=== PATIENT | male | born 1960 | race Caucasian/White ===

== ENCOUNTER 2018-11-12 17:41 | Emergency (ER) | payer OTHER ==
[~2018-11-12] VITALS: Ht 182.9 cm; Wt 108.9 kg
[~2018-11-12 17:41] MED LIST: ALBU90OI INH; AZIT250 PO; CODGUAEL PO; HYDACE5 PO; HYDMOR4 PO; IBUP800 PO; INSULIN; METF500 PO; PIOG30 PO; RXHYDMOR2 PO
[2018-11-12 18:31] LABS: BASOPHILS ABSOLUTE AUTO 0.06 K/mm3 (0.00-0.23); BASOPHILS PERCENT AUTO 1 % (0-2); EOSINOPHILS ABSOLUTE AUTO 0.25 K/mm3 (0.00-0.68); EOSINOPHILS PERCENT AUTO 3 % (0-6); Hematocrit 43.5 % (37.0-53.0); Hemoglobin 14.8 g/dL (13.5-17.5); IMMATURE GRAN ABSOLUTE AUTO 0.04 K/mm3 (0.00-0.10); IMMATURE GRAN PERCENT AUTO 1 % (0-1); LYMPHOCYTES ABSOLUTE AUTO 3.12 K/mm3 (0.84-5.20); LYMPHOCYTES PERCENT AUTO 39 % (21-46); MONOCYTES ABSOLUTE AUTO 0.55 K/mm3 (0.16-1.47); MONOCYTES PERCENT AUTO 7 % (4-13); Mean Corpuscular HGB 28.7 pg (26.0-34.0); Mean Corpuscular Volume 85 fL (80-100); Mean Platelet Volume 10.5 fL (9.1-12.4); NEUTROPHILS ABSOLUTE AUTO 3.91 K/mm3 (1.96-9.15); NEUTROPHILS PERCENT AUTO 49 % (41-73); Platelet Count 246 K/mm3 (150-400); RDW Coefficient Variation 12.2 % (11.7-14.2); RDW Standard Deviation 37.1 fL (35.1-46.3); Red Blood Cell Count 5.15 M/mm3 (4.30-5.90); White Blood Cell Count 7.93 K/mm3 (4.00-11.30)
[2018-11-12 18:44] LABS: Anion Gap 3 mmol/L (6-16); Blood Urea Nitrogen 15 mg/dL (8-24); Bun/Creatinine Ratio 14.7 (12.0-20.0); CO2, Blood 28 mmol/L (21-32); Calcium, Blood 8.8 mg/dL (8.5-10.1); Chloride, Blood 103 mmol/L (98-108); Creatinine, Blood 1.02 mg/dL (0.60-1.20); Glomerular Filtration Rate >60 (60-); Glucose, Blood 196 mg/dL (70-99); Potassium, Blood 4.3 mmol/L (3.5-5.5); Sodium, Blood 134 mmol/L (136-145)
[2018-11-12 19:48] LABS: International Normalized Ratio 1.03; Prothrombin Time Results 10.9 Sec (9.7-11.5)
[2018-11-12] MEDS ORDERED: XARELTO15 MG PO (19:54)
== END 2018-11-12 20:19 | disposition home or self-care (01) ==
LOC: ER 17:41
PROVIDERS: Emergency Medicine
DX: I82.402 Acute embolism and thrombosis of unspecified deep veins of left lower extremity (principal); E11.9 Type 2 diabetes mellitus without complications; Z79.899 Other long term (current) drug therapy; Z87.891 Personal history of nicotine dependence
CPT/HCPCS: 36415; 80048; 85025; 85379; 85610; 85730; 93971; 99284-25

== ENCOUNTER 2018-11-15 23:17 | Inpatient (IN) | payer OTHER ==
[~2018-11-15] VITALS: Ht 182.9 cm; Wt 111.2 kg
[~2018-11-15 23:17] MED LIST changes: +XARELTO15 MG PO
[2018-11-16 00:09] LABS: BASOPHILS ABSOLUTE AUTO 0.06 K/mm3 (0.00-0.23); BASOPHILS PERCENT AUTO 1 % (0-2); EOSINOPHILS ABSOLUTE AUTO 0.26 K/mm3 (0.00-0.68); EOSINOPHILS PERCENT AUTO 4 % (0-6); Hematocrit 46.5 % (37.0-53.0); Hemoglobin 15.5 g/dL (13.5-17.5); IMMATURE GRAN ABSOLUTE AUTO 0.04 K/mm3 (0.00-0.10); IMMATURE GRAN PERCENT AUTO 1 % (0-1); LYMPHOCYTES ABSOLUTE AUTO 3.51 K/mm3 (0.84-5.20); LYMPHOCYTES PERCENT AUTO 48 % (21-46); MONOCYTES ABSOLUTE AUTO 0.45 K/mm3 (0.16-1.47); MONOCYTES PERCENT AUTO 6 % (4-13); Mean Corpuscular HGB 27.9 pg (26.0-34.0); Mean Corpuscular HGB Conc 33.3 g/dL (31.5-36.5); Mean Corpuscular Volume 84 fL (80-100); Mean Platelet Volume 10.8 fL (9.1-12.4); NEUTROPHILS ABSOLUTE AUTO 3.04 K/mm3 (1.96-9.15); NEUTROPHILS PERCENT AUTO 41 % (41-73); Platelet Count 248 K/mm3 (150-400); RDW Coefficient Variation 12.3 % (11.7-14.2); RDW Standard Deviation 37.5 fL (35.1-46.3); Red Blood Cell Count 5.55 M/mm3 (4.30-5.90); White Blood Cell Count 7.36 K/mm3 (4.00-11.30)
[2018-11-16 00:18] LABS: International Normalized Ratio 1.1; Prothrombin Time Results 11.6 Sec (9.7-11.5)
[2018-11-16 00:23] LABS: Alanine Aminotransfer (ALT/SGP 23 U/L (12-78); Albumin, Blood 3.8 g/dL (3.4-5.0); Alk Phos 148 U/L (50-136); Anion Gap 7 mmol/L (6-16); Aspartate Aminotrans (AST/SGOT 13 U/L (12-37); Bilirubin, Total 0.4 mg/dL (0.1-1.0); Blood Urea Nitrogen 15 mg/dL (8-24); Bun/Creatinine Ratio 17.1 (12.0-20.0); CO2, Blood 27 mmol/L (21-32); Calcium, Blood 8.5 mg/dL (8.5-10.1); Chloride, Blood 102 mmol/L (98-108); Creatinine, Blood 0.88 mg/dL (0.60-1.20); Globulin, Blood 3.7 g/dL (2.2-4.0); Glomerular Filtration Rate >60 (60-); Glucose, Blood 403 mg/dL (70-99); Potassium, Blood 4.2 mmol/L (3.5-5.5); Sodium, Blood 136 mmol/L (136-145); Total Protein, Blood 7.5 g/dL (6.4-8.2)
[2018-11-16] MEDS ORDERED: INSUGL100V SC (04:25)
[2018-11-16] MEDS ORDERED: METF500 PO (04:29)
[2018-11-16] MEDS ORDERED: GLIP5 PO (04:36)
[2018-11-16] MEDS ORDERED: METO50 PO (04:37)
[2018-11-16] MEDS ORDERED: FENO145 PO (04:39)
[2018-11-16] MEDS ORDERED: Prinivil10 MG PO (04:40)
[2018-11-16] MEDS ORDERED: Zocor20 MG PO (04:42)
--- NOTE | 2018-11-16 07:27 | NUR ---
NOC SHIFT SUMMARY PT ADMITTED THIS NIGHT FOR PE. HAD RECENTLY BEEN DIAGNOSED WITH DVT AND WAS ON XARELTO. SUDDENLY STARTED "NOT FEELING RIGHT" AND CAME INTO ED LAST NIGHT. HAS DENIED ANY PAIN OR DISCOMFORT SINCE BEING ADMITTED TO THE FLOOR. VSS. AAOX4. RESP EVEN AND UNLABORED. APPEARS IN NO ACUTE DISTRESS. REPORT TO ONCOMING RN.
--- NOTE | 2018-11-16 10:49 | NUR ---
Upon receiving a referral for spiritual care, I entered patient's room. Patient explained about his current medical condition and about his fears about the clots breaking loose and causing more damage. Patient also admitted his concerns about an upcoming procedure that will deal with the clots in his leg. Patient asked if I would pray for him. I gladly provided prayer for patient's protection, for peace and God's hand to guide the doctor's hands. Patient then told me about his life, career and spiritual journey (which includes Hindu, Synagogue and Restorationism influences). Patient does not attend a quaker but meets with God in the [place]. I conducted a life review, explored patient's belief system, provided pastoral senior genetic counselor and prayer. Patient responded well and showed signs of reduced stress and fear. I will continue to remain available to patient and family.
--- NOTE | 2018-11-16 11:16 | NUR ---
HEPARIN HEPARIN BOLUS ADMINISTERED AND HEPARIN DRIP INFUSING. ERNIE, RN VERIFIED WITH THIS RN. PT EDUCATED WHAT MEDICATION WAS USED FOR. PLANS FOR PROCEDURE LATE THIS AM OR AFTERNOON BY DR. RAMOS. CALL LIGHT IN REACH.
--- NOTE | 2018-11-16 16:15 | NUR ---
ARRIVED FROM [facility], TO ICU 5, VIA BED; HAD BEEN ON MEDICAL FLOOR, ROOM 306, PRIOR TO PROCEDURE. PATIENT ON TPA INFUSION INTO L PEDAL SHEATH (VENOUS); INFUSING AT 1MG/HR OR 25CC/HR. ALSO, HEPARIN DRIP INFUSING AT 300U/HR (6ML/HR OR 3.3U/KG/HR). PATIENT A/O AND DENIES DISCOMFORT. GOOD PULSES TO ALL EXTREMITIES. BIOX. 100% ON ROOM AIR. PATIENT C/O BEING HUNGARY; GIVEN ICE WATER FOR NOW AND WILL GIVE DINNER AT ABOUT 1700. R GROIN SITE (VENOUS) SOFT; DRESSING D/I. L PEDAL SITE INFUSING WITH TPA NOTED ABOVE; SITE AND DRESSING D/I. PATIENT ORIENTED TO CALL LIGHT AND SAFETY PROTOCOLS. WANTING TO WATCH TV; RN ASSISTED.
--- NOTE | 2018-11-16 18:00 | NUR ---
SUMMARY: R GROIN (VENOUS) SITE SOFT/DRESSING INTACT. L FOOT SHEATH/DRESSING D/I; INFUSING WITH TPA AT 25ML/HR. HEPARIN DRIP INFUSING AT 300U/HR; 6ML/HR. TOLERATED 100% OF DINNER AND WANTED SNACKS WELL. VOIDED IN URINAL. L FOOT SL. COOLER THAN R FOOT AND CALF MORE SWOLLEN BUT GOOD PULSES AND COLOR BILAT. WILL REPORT TO ONCOMING RN.
--- NOTE | 2018-11-16 19:30 | NUR ---
ASSUMED CARE PT SUPINE IN BED, A&OX4 S/P IVC FILTER PLACEMENT TODAY WITH DR RAMOS. PT HAS SET HEPARIN INFUSING AT 300 UNITS/HR=6ML/HR AND tPA TO LEFT FOOT SHEATH AT 1MG/HR. PLAN TO TO TAKE PT BACK TO [employer] TOMORROW FOR RE-EVAL OF LLE DVT. PT REPORTING LEFT FOOT PAIN, "LIKE THEY HIT A NERVE." FOOT IS WARM WITH GOOD PULSES AND PLETH ON SPO2. PT'S SISTER IN ROOM. VSS, ECG SHOWS SR AND O2 SATS >95% ON RA.
--- NOTE | 2018-11-17 06:22 | NUR ---
SHIFT SUMMARY NO ACUTE EVENTS OVERNIGHT. HEPARIN REMAINS AT 3.3UNITS/KG/HR TO EQUAL 300UNITS/HR AND tPA VIA LEFT FOOT VENOUS SHEATH AT 1MG/HR. LLE HAS 2+ PULSES, IS PINK AND WARM. PT HAS REPORTED PAIN TO HEEL OF FOOT AND CALF OVERNIGHT BUT PAIN TOLERABLE W/ TYLENOL AND REPOSITIONING. NO BM, VOIDS INTO URINAL. VSS, ECG SHOWS SR AND O2 SATS MID 90'S BUT WILL DROP TO 88% FOR SHORT PERIODS OF TIME WITH SLEEP.
--- NOTE | 2018-11-17 07:15 | NUR ---
ASSUMED CARE OF PATIENT; SEE ASSESSMENT CHARTING FOR DETAILS. PATIENT SLEEPY; ROUSES TO VERBAL STIMULI. DENIES ACUTE PAIN TO L FOOT BUT SOME SORENESS TO BACK OF L CALF STARTED UP. GOOD PEDAL PULSES AND COLOR; SHEATH INTACT AND INFUSING WITH TPA AT 25ML/HR. LUNGS CLEAR; BIOX HIGH 90'S ON ROOM AIR. MONITOR REMAINS NSR WITH RARE TO OCCASIONAL ECTOPIC.
--- NOTE | 2018-11-17 09:09 | NUR ---
TO [facility]ENTER VIA BED; ON [employer]; ICU TRIPLE PUMP WITH PATIENT AND HEPARIN AND TPA INFUSIONS CONTINUE.
--- NOTE | 2018-11-17 09:50 | NUR ---
RETURNED FROM [facility]ART CENTER; SHEATH TO L FOOT REMOVED; SITE INTACT WITH CLEAR DRESSING. PATIENT WITH ORDERS TO D/C HOME TODAY.
--- NOTE | 2018-11-17 10:30 | NUR ---
DR. WHITT, HERE; REVIEWED D/C MEDS. ETC. WANTS PATIENT TO FOLLOW-UP WITH DR. RAMOS WITHIN 2 WEEKS AND TO ALSO PURSUE FINDING A PCP
--- NOTE | 2018-11-17 11:00 | NUR ---
DISCHARGE INSTRUCTIONS GIVEN; NOTE: PATIENT IS ILLITERATE BUT ABLE TO SIGN NAME. STATES HIS MOTHER HELPS MANAGE HIS MEDICATIONS AND SHE EXPLAINS EVERYTHING TO HIM. RN VERBALLY GAVE PATIENT HIS INSTRUCTIONS AND REVIEWED MEDICATIONS (TO CONTINUE CURRENT MEDS.). EDUCATIONAL INSTRUCTIONS ON DVT, DM, IVC FILTER, ETC. (HANDOUTS) GIVEN TO PATIENT; HE WILL HAVE HIS MOTHER AND SISTERS REVIEW INFORMATION WITH HIM.
--- NOTE | 2018-11-17 11:10 | NUR ---
IV DC'D FROM R [facility] AND SECURED WITH DRESSING. PATIENT OOB AND CHANGING INTO STREET CLOTHES.
--- NOTE | 2018-11-17 11:40 | NUR ---
DISCHARGED HOME; TO PRIVATE CAR VIA W/C. SISTER AND NEPHEW HERE WITH PATIENT AND WILL TAKE HIM HOME. RN REVIEWED D/C INSTRUCTIONS WITH PATIENTS' SISTER AND SHE WILL REVIEW THEM WITH HER MOTHER AND OTHER SISTER, ALSO.
== END 2018-11-17 11:50 | disposition home or self-care (01) | DRG 167 ==
LOC: ER 23:17 → MEDS 23:18 → ICUE 11-16 15:38
PROVIDERS: Emergency Medicine; Internal Medicine; ADMIT Internal Medicine
PROC: 06H03DZ Insertion of Intraluminal Device into Inferior Vena Cava, Percutaneous Approach (ICD-10-PCS; principal; 2018-11-17)
PROC: 3E03317 Introduction of Other Thrombolytic into Peripheral Vein, Percutaneous Approach (ICD-10-PCS; 2018-11-17)
DX: I26.99 Other pulmonary embolism without acute cor pulmonale (principal); I82.5Z2 Chronic embolism and thrombosis of unspecified deep veins of left distal lower extremity; Z87.891 Personal history of nicotine dependence; E11.9 Type 2 diabetes mellitus without complications; Z79.84 Long term (current) use of oral hypoglycemic drugs; Z79.01 Long term (current) use of anticoagulants
CPT/HCPCS: 36415; 37191; 37212; 37214; 71260; 75820; 76937; 80053; 82947; 83036; 83880; 84484; 85025; 85384; 85610; 85730; 93005; 93010; 93306; 99152; 99153; 99285-25; A9270; C1769; C1880; C1894; G0378; J1644; J1815; J2250; J2997; J3010; J7030; J7040; Q9967

== ENCOUNTER 2018-11-20 11:16 | Emergency (ER) | payer OTHER ==
[~2018-11-20] VITALS: Ht 182.9 cm; Wt 100.2 kg
[~2018-11-20 11:16] MED LIST changes: +FENO145 PO; +GLIP5 PO; +INSUGL100V SC; +METO50 PO; +Prinivil10 MG PO; +Zocor20 MG PO
[2018-11-20 12:07] LABS: BASOPHILS ABSOLUTE AUTO 0.06 K/mm3 (0.00-0.23); BASOPHILS PERCENT AUTO 1 % (0-2); EOSINOPHILS PERCENT AUTO 3 % (0-6); Hematocrit 43.8 % (37.0-53.0); Hemoglobin 14.8 g/dL (13.5-17.5); IMMATURE GRAN ABSOLUTE AUTO 0.04 K/mm3 (0.00-0.10); IMMATURE GRAN PERCENT AUTO 1 % (0-1); LYMPHOCYTES ABSOLUTE AUTO 2.41 K/mm3 (0.84-5.20); LYMPHOCYTES PERCENT AUTO 35 % (21-46); MONOCYTES ABSOLUTE AUTO 0.48 K/mm3 (0.16-1.47); MONOCYTES PERCENT AUTO 7 % (4-13); Mean Corpuscular HGB 27.8 pg (26.0-34.0); Mean Corpuscular HGB Conc 33.8 g/dL (31.5-36.5); Mean Corpuscular Volume 82 fL (80-100); Mean Platelet Volume 11.2 fL (9.1-12.4); NEUTROPHILS ABSOLUTE AUTO 3.66 K/mm3 (1.96-9.15); NEUTROPHILS PERCENT AUTO 53 % (41-73); Platelet Count 219 K/mm3 (150-400); RDW Coefficient Variation 12.4 % (11.7-14.2); RDW Standard Deviation 36.9 fL (35.1-46.3); Red Blood Cell Count 5.33 M/mm3 (4.30-5.90); White Blood Cell Count 6.85 K/mm3 (4.00-11.30)
[2018-11-20 12:19] LABS: Alanine Aminotransfer (ALT/SGP 29 U/L (12-78); Albumin, Blood 3.8 g/dL (3.4-5.0); Alk Phos 137 U/L (50-136); Anion Gap 6 mmol/L (6-16); Aspartate Aminotrans (AST/SGOT 5 U/L (12-37); Bilirubin, Total 0.5 mg/dL (0.1-1.0); Blood Urea Nitrogen 18 mg/dL (8-24); Bun/Creatinine Ratio 19.6 (12.0-20.0); CO2, Blood 27 mmol/L (21-32); Calcium, Blood 8.6 mg/dL (8.5-10.1); Chloride, Blood 102 mmol/L (98-108); Creatinine, Blood 0.92 mg/dL (0.60-1.20); Globulin, Blood 3.8 g/dL (2.2-4.0); Glomerular Filtration Rate >60 (60-); Glucose, Blood 363 mg/dL (70-99); Potassium, Blood 4.2 mmol/L (3.5-5.5); Sodium, Blood 135 mmol/L (136-145); Total Protein, Blood 7.6 g/dL (6.4-8.2); Troponin I <0.015 ng/mL (0.000-0.040)
== END 2018-11-20 12:52 | disposition home or self-care (01) ==
LOC: ER 11:16
PROVIDERS: Internal Medicine
DX: S46.812A Strain of other muscles, fascia and tendons at shoulder and upper arm level, left arm, initial encounter (principal); E11.9 Type 2 diabetes mellitus without complications; Z79.899 Other long term (current) drug therapy; Z79.4 Long term (current) use of insulin; Z86.718 Personal history of other venous thrombosis and embolism; Z79.01 Long term (current) use of anticoagulants; X58.XXXA Exposure to other specified factors, initial encounter
CPT/HCPCS: 36415; 71046; 80053; 84484; 85025; 93005; 93010; 99284-25

== ENCOUNTER 2019-02-08 07:11 | Day surgery (SDC) | payer OTHER ==
[~2019-02-08] VITALS: Ht 182.9 cm; Wt 109.0 kg
--- NOTE | 2019-02-08 10:37 | NUR ---
Pt sitting up eating breakfast, right jugular site wnl dressing dry and intact. Right venous femoral site wnl, dressing dry with one small dime size blood liss which was there upon arrival from filling station laborer. IV hep locked. Pt with call light.
--- NOTE | 2019-02-08 11:20 | NUR ---
PT UP GETTING SELF DRESSED WITH NO NEEDED ASSISTANCE, RIGHT FEMORAL VEIN ACCESS SITE REMAINS STABLE. RIJ VENOUS SITE ALSO STABLE. BOTH DRESSINGS C/D/I. PT AMBULATES WITH STEADY GAIT. UNMEASURED URINE VOIDED. PT CALLS FOR RIDE HOME. IV REMOVED FROM LAC WITH CATH INTACT, PRESSURE DRESSING APPLIED. DISPO PAPERWORK DISCUSSED AND PROVIDED TO PT BY LORIE ETIENNE RN.
[2019-02-10] MEDS ORDERED: XARELTO20 MG PO (05:00)
[2019-02-10] MEDS ORDERED: METO50ER PO (05:08)
[2019-02-10] MEDS ORDERED: FENO48 (05:08)
[2019-02-10] MEDS ORDERED: GLIP5 PO (05:08)
[2019-02-10] MEDS ORDERED: BASAGLAR K100 UNIT/1 (05:11)
[2019-02-10] MEDS ORDERED: FENO145 PO (12:53)
[2019-02-11] MEDS ORDERED: ROXICODONE5 MG PO (12:49)
== END 2019-02-08 11:45 | disposition home or self-care (01) ==
LOC: MHTC 07:11
DX: Z45.2 Encounter for adjustment and management of vascular access device (principal); E11.51 Type 2 diabetes mellitus with diabetic peripheral angiopathy without gangrene; I10 Essential (primary) hypertension; I82.409 Acute embolism and thrombosis of unspecified deep veins of unspecified lower extremity; E66.9 Obesity, unspecified; E78.5 Hyperlipidemia, unspecified; Z79.4 Long term (current) use of insulin; Z79.01 Long term (current) use of anticoagulants; Z79.899 Other long term (current) drug therapy
CPT/HCPCS: 36010; 37193; 75825; 99152; 99153; C1769; C1773; C1880; C1887; C1894; J2250; J3010; J7030; Q9967

== ENCOUNTER 2019-04-13 08:47 | Day surgery (SDC) | payer OTHER ==
[~2019-04-13] VITALS: Ht 182.9 cm; Wt 109.0 kg
[~2019-04-13 08:47] MED LIST changes: +BASAGLAR K100 UNIT/1; +FENO48; +METO50ER PO; +ROXICODONE5 MG PO; +XARELTO20 MG PO
--- NOTE | 2019-04-13 14:03 | NUR ---
PT VERBALIZED UNDERSTANDING OF WRITTEN AND VERBAL D/C INST. -BLEEDING OR SWELLING R NECK AREA. IV REMOVED. PT TAKEN OUT OF HRT CENTER VIA W/C.
== END 2019-04-13 14:29 | disposition home or self-care (01) ==
LOC: MHTC 08:47
DX: I82.501 Chronic embolism and thrombosis of unspecified deep veins of right lower extremity (principal); E11.51 Type 2 diabetes mellitus with diabetic peripheral angiopathy without gangrene; I10 Essential (primary) hypertension; E78.5 Hyperlipidemia, unspecified; F03.90 Unspecified dementia, unspecified severity, without behavioral disturbance, psychotic disturbance, mood disturbance, and anxiety; E66.9 Obesity, unspecified; Z68.32 Body mass index [BMI] 32.0-32.9, adult; Z79.01 Long term (current) use of anticoagulants; Z79.4 Long term (current) use of insulin; Z79.899 Other long term (current) drug therapy
CPT/HCPCS: 37193; 76937; 82947; 99152; 99153; C1769; C1773; C1880; C1887; C1894; J1644; J2250; J3010; J7030; J7040

== ENCOUNTER 2021-02-07 20:42 | Emergency (ER) | payer OTHER ==
[~2021-02-07] VITALS: Ht 182.9 cm; Wt 108.9 kg
[~2021-02-07 20:42] MED LIST changes: +LEVFLO500 PO; +OXYC5 PO
[2021-02-07] MEDS ORDERED: Percocet 5-3251 EACH PO (22:00)
[2021-02-07] MEDS ORDERED: ACETAMINOPHEN500 MG PO (22:00)
== END 2021-02-07 22:12 | disposition home or self-care (01) ==
LOC: ER 20:42
DX: S76.811A Strain of other specified muscles, fascia and tendons at thigh level, right thigh, initial encounter (principal); E11.9 Type 2 diabetes mellitus without complications; Z86.711 Personal history of pulmonary embolism; Z86.718 Personal history of other venous thrombosis and embolism; Z79.4 Long term (current) use of insulin; Z79.84 Long term (current) use of oral hypoglycemic drugs; Z79.899 Other long term (current) drug therapy; X58.XXXA Exposure to other specified factors, initial encounter
CPT/HCPCS: 93971; 99283-25; A9270

== ENCOUNTER 2021-04-29 13:11 | Emergency (ER) | payer OTHER ==
[~2021-04-29] VITALS: Ht 182.9 cm; Wt 108.9 kg
[~2021-04-29 13:11] MED LIST changes: +ACETAMINOPHEN500 MG PO; +Percocet 5-3251 EACH PO
[2021-04-29] MEDS ORDERED: IBUP800 PO (14:26)
[2021-04-29] MEDS ORDERED: Robaxin750 MG PO (14:26)
== END 2021-04-29 14:54 | disposition home or self-care (01) ==
LOC: ER 13:11
DX: M25.512 Pain in left shoulder (principal); M54.6 Pain in thoracic spine; E11.9 Type 2 diabetes mellitus without complications; Z79.4 Long term (current) use of insulin; V89.2XXA Person injured in unspecified motor-vehicle accident, traffic, initial encounter
CPT/HCPCS: 99283; A9270

== ENCOUNTER 2022-08-03 09:45 | Emergency (ER) | payer OTHER ==
[~2022-08-03] VITALS: Ht 182.9 cm; Wt 104.3 kg
[~2022-08-03 09:45] MED LIST changes: +Robaxin750 MG PO
[2022-08-03 12:26] LABS: Source, Urine Clean Catch
[2022-08-03 12:32] LABS: Appearance, Urine Clear (Clear); Bilirubin, Urine Neg (Neg); Blood, Urine Neg (Neg); Color, Urine Yellow (P-Yellow); Glucose Qualitative, Urine 4+ (Neg); Ketones, Urine Neg (Neg); Leukocyte Esterase, Urine Neg (Neg); Nitrite, Urine Neg (Neg); Protein, Urine Neg (Neg); Urobilinogen, Urine NORM (Normal); pH, Urine 6.5 (5.0-8.0)
[2022-08-03 13:44] LABS: BASOPHILS ABSOLUTE AUTO 0.07 K/mm3 (0.00-0.23); BASOPHILS PERCENT AUTO 1 % (0-2); EOSINOPHILS ABSOLUTE AUTO 0.22 K/mm3 (0.00-0.68); EOSINOPHILS PERCENT AUTO 3 % (0-6); Hemoglobin 14.6 g/dL (13.5-17.5); IMMATURE GRAN ABSOLUTE AUTO 0.03 K/mm3 (0.00-0.10); IMMATURE GRAN PERCENT AUTO 0 % (0-1); LYMPHOCYTES ABSOLUTE AUTO 2.58 K/mm3 (0.84-5.20); LYMPHOCYTES PERCENT AUTO 33 % (21-46); MONOCYTES ABSOLUTE AUTO 0.59 K/mm3 (0.16-1.47); MONOCYTES PERCENT AUTO 8 % (4-13); Mean Corpuscular HGB 28.5 pg (26.0-34.0); Mean Corpuscular HGB Conc 34.8 g/dL (31.5-36.5); Mean Corpuscular Volume 82 fL (80-100); Mean Platelet Volume 11.2 fL (9.1-12.4); NEUTROPHILS ABSOLUTE AUTO 4.35 K/mm3 (1.96-9.15); NEUTROPHILS PERCENT AUTO 56 % (41-73); Platelet Count 191 K/mm3 (150-400); RDW Coefficient Variation 11.7 % (11.7-14.2); RDW Standard Deviation 35.4 fL (35.1-46.3); Red Blood Cell Count 5.12 M/mm3 (4.30-5.90); White Blood Cell Count 7.84 K/mm3 (4.00-11.30)
[2022-08-03 14:10] LABS: Bun/Creatinine Ratio 22.3 (12.0-20.0); Calcium, Blood 8.8 mg/dL (8.5-10.1); Creatinine, Blood 0.9 mg/dL (0.60-1.20); Potassium, Blood 4.5 mmol/L (3.5-5.5)
[2022-08-03 14:30] VITALS: BP 136/80
== END 2022-08-03 15:14 | disposition home or self-care (01) ==
LOC: ER 09:45
PROVIDERS: Student in an Organized Health Care Education/Training Program
DX: R59.0 Localized enlarged lymph nodes (principal); E11.65 Type 2 diabetes mellitus with hyperglycemia; Z79.899 Other long term (current) drug therapy; Z79.84 Long term (current) use of oral hypoglycemic drugs; Z79.4 Long term (current) use of insulin
CPT/HCPCS: 76870; 80048; 81003; 82947; 83735; 85025; 96374; 99283-25; J1815; J1885; J7030

== ENCOUNTER 2022-08-11 18:35 | Emergency (ER) | payer OTHER ==
[~2022-08-11] VITALS: Ht 188 cm; Wt 104.3 kg
[2022-08-11 18:53] VITALS: BP 150/90
[2022-08-11] MEDS ORDERED: Norco 5-325 Ta1 EACH PO (19:01)
== END 2022-08-11 19:01 | disposition home or self-care (01) ==
LOC: ER 18:35
DX: R59.1 Generalized enlarged lymph nodes (principal); R10.32 Left lower quadrant pain; E11.9 Type 2 diabetes mellitus without complications; Z86.718 Personal history of other venous thrombosis and embolism; Z86.711 Personal history of pulmonary embolism; Z79.4 Long term (current) use of insulin; Z79.84 Long term (current) use of oral hypoglycemic drugs; Z79.01 Long term (current) use of anticoagulants
CPT/HCPCS: 99283

== ENCOUNTER 2023-02-15 08:42 | Emergency (ER) | payer OTHER ==
[~2023-02-15] VITALS: Ht 182.9 cm; Wt 108.9 kg
[~2023-02-15 08:42] MED LIST changes: +Norco 5-325 Ta1 EACH PO
[2023-02-15 08:48] VITALS: BP 129/100
== END 2023-02-15 10:32 | disposition home or self-care (01) ==
LOC: ER 08:42
DX: S39.012A Strain of muscle, fascia and tendon of lower back, initial encounter (principal); S20.212A Contusion of left front wall of thorax, initial encounter; X50.0XXA Overexertion from strenuous movement or load, initial encounter; Z79.899 Other long term (current) drug therapy; Z79.84 Long term (current) use of oral hypoglycemic drugs; Z79.4 Long term (current) use of insulin; E11.9 Type 2 diabetes mellitus without complications
CPT/HCPCS: 71101; 96372; 99283-25; J1885

== ENCOUNTER 2024-06-06 14:01 | Emergency (ER) | payer OTHER ==
[~2024-06-06] VITALS: Ht 182.9 cm; Wt 108.9 kg
[2024-06-06 14:18] VITALS: BP 135/82
[2024-06-06] MEDS ORDERED: Ketorolac Tromethamine 15mg Vial IV ONE (15:05)
== END 2024-06-06 15:33 | disposition home or self-care (01) ==
LOC: ER 14:01
DX: S93.602A Unspecified sprain of left foot, initial encounter (principal); E11.9 Type 2 diabetes mellitus without complications; Z86.718 Personal history of other venous thrombosis and embolism; Z86.711 Personal history of pulmonary embolism; Z79.84 Long term (current) use of oral hypoglycemic drugs; Z79.01 Long term (current) use of anticoagulants; Z79.4 Long term (current) use of insulin; Z79.899 Other long term (current) drug therapy; Z59.89 Other problems related to housing and economic circumstances; X50.1XXA Overexertion from prolonged static or awkward postures, initial encounter
CPT/HCPCS: 73630; 96374; 99283-25; J1885